=== PATIENT | female | born 1935 ===

== ENCOUNTER 2024-10-10 06:21 | Day surgery (SDC) | payer OTHER, SELFPAY ==
[2024-10-10] VITALS (8 sets, daily range): BP systolic 122–161; BP diastolic 51–82; BMI 23.9
[2024-10-10 08:44] LABS: Urine Albumin 2+ (Neg - Trace); Urine Bilirubin Negative (Negative); Urine Character Clear (Clear); Urine Color Yellow; Urine Glucose Negative (Negative); Urine Ketone Negative (Negative); Urine Leukocyte 3+ (Negative); Urine Nitrite Negative (Negative); Urine Occult Blood 3+ (Negative); Urine Specific Gravity 1.015 (<1.030); Urine Urobilinogen Negative (Neg - 1+)
[2024-10-10] MEDS: Pyridium 200 MG PO (08:49)
[2024-10-10] MEDS: NORMOSOL-R/PLASMALYTE-A 1000 IV (08:49)
[2024-10-10 09:44] LABS: Urine Bacteria Moderate (Negative); Urine White Cell >100 /HPF (0-5)
== END 2024-10-10 12:10 | disposition home or self-care (01) ==
LOC: SDS 06:21
PROVIDERS: ATTENDING PHYSICIAN Specialist
DX: N20.1 Calculus of ureter (principal); Z87.440 Personal history of urinary (tract) infections
CPT/HCPCS: 52356; 74018; 76000; 81003; 81015; 82365; 87086; 93005; C1894; C2617